=== PATIENT | male | born 1945 | race Caucasian/White ===

== ENCOUNTER → 2020-03-04 09:38 | Outpatient (BNVA) | payer MEDICARE, OTHER, SELFPAY | PROVIDERS: PCP Family Medicine; Referring Provider Family Medicine; Visit Provider Urology | DX: N40.1 Benign prostatic hyperplasia with lower urinary tract symptoms (principal); R35.1 Nocturia; G47.30 Sleep apnea, unspecified | CPT/HCPCS: 81003 ==